=== PATIENT | male | born 1950 | race Caucasian/White ===

== ENCOUNTER 2022-05-21 06:48 | Day surgery (SDC) | payer OTHER, SELFPAY ==
[2022-05-17 12:08] VITALS: BMI 25.7
[2022-05-21] MEDS: sodium chloride 0.9% 1,000 ML 30 ML IV (07:19)
--- NOTE | 2022-05-21 07:42 | P.HP_ITS ---
Same Day Surgery H&P Indication for Procedure/HPI DATE OF PROCEDURE: May 21, 2022 CHIEF COMPLAINT/INDICATIONFOR SURGICAL PROCEDURE: Screen PREOP DIAGNOSIS: Screen PLANNED PROCEDURE: Operation Date: 05/21/22 08:30 Proposed Procedures p [id number] Colon A Risk Z12.11(Not Applicable) - Chino Thomas MD Medications/Allergies* Home Medications Medication Instructions Recorded Confirmed Type duloxetine 30 mg capsule,delayed 30 mg PO DAILY 05/02/22 05/17/22 History release hydrochlorothiazide 25 mg tablet 25 mg PO DAILY 05/02/22 05/17/22 History meloxicam 15 mg tablet 15 mg PO DAILY 05/02/22 05/17/22 History amoxicillin 875 mg-potassium 1 tab PO Q12H 05/17/22 05/17/22 History clavulanate 125 mg tablet Allergies/Adverse Reactions Allergy/AdvReac Type Severity Reaction Status Date / Time hylan G-F 20 [From [employer]og[employer]] Allergy swelled up Verified 05/02/22 13:34 and got fluid on his knee Current Medications: Generic Name Dose Route Start Last Admin Trade Name Freq PRN Reason Stop Dose Admin Sodium Chloride 1,000 mls @ 30 mls/hr 05/21/22 07:00 05/21/22 07:19 Sodium Chloride 0.9% IV 30 mls/hr .Q24H RAYMUNDO Administration Pertinent History/Comorbid Conditions* Family History (Updated 05/02/22 @ 13:40 by Celia Kwon LPN) Father Osteoporosis Mother Heart disease Father Cancer Father Hypertension Mother Social History Smoking and tobacco status: former smoker Quit status (tobacco): has quit using tobacco Second hand smoke exposure: No Smoking risk assessment/counseling performed?: No Alcohol intake: never Desire information about alcohol rehabilitation?: No Counseling given: No Desire information about substance/drug rehabilitation?: No Counseling given: No Adopted: No Caregiver/support person: No Lives independently: Yes Household members: spouse Housing: House Marital status: Number of children: 2 Highest education level completed: High School Graduate service: Yes Current occupational status: retired Pertinent Exam Findings alert, oriented x 3, clear to auscultation bilaterally, regular rate & rhythm, operative site marked and procedure specific exam findings Recommendations Surgery/Procedure today Coding Level of Care Code Acute Fabricator Special Items for To Jones
--- NOTE | 2022-05-21 08:30 | P.ANESASSM_ITS ---
Pre-Anesthetic Assessment Height/Weight: Height 1.83 m Weight 86.183 kg Preop Diagnosis: Screen Operation Date: 05/21/22 08:30 Proposed Procedures p [id number] Colon A Risk Z12.11(Not Applicable) - Chino Thomas MD Familial anesthetic complications: none Was Beta Buck taken within 24 hours: N/A Was Clonidine taken within 24 hours: N/A Last intake: Intake Last Liquid Date 05/20/22 Last Liquid Time 22:00 Last Solid Date 05/19/22 Last Solid Time 18:00 Social No alcohol and No tobacco Exam alert, oriented x 3, clear to auscultation bilaterally and regular rate & rhythm Airway Submandibular: within normal limits Cervical ROM: within normal limits Mallampati: Class II Dentition: full Pulmonary None reported CV/HEM Hypertension None reported Hepatic None reported GI None reported Metabolic None reported Musc/skel Lower Back Pain, Osteoarthritis/DJD and Weakness (lower extremities) Neuropsych Depression and Neuropathy Anesthetic Plan ASA status: 3 Anesthesia: MAC Risk of > 500 ml blood loss (7ml/kg in children): No Medications/Allergies Home Medications Medication Instructions Recorded Confirmed Last Taken Type duloxetine 30 mg capsule,delayed 30 mg PO DAILY 05/02/22 05/17/22 05/20/22 History release hydrochlorothiazide 25 mg tablet 25 mg PO DAILY 05/02/22 05/17/22 05/20/22 History meloxicam 15 mg tablet 15 mg PO DAILY 05/02/22 05/17/22 05/20/22 History amoxicillin 875 mg-potassium 1 tab PO Q12H 05/17/22 05/17/22 05/20/22 History clavulanate 125 mg tablet Allergies Allergy/AdvReac Type Severity Reaction Status Date / Time hylan G-F 20 [From [employer]] Allergy swelled up Verified 05/02/22 13:34 and got fluid on his knee Current Medications Generic Name Dose Route Start Last Admin Trade Name Freq PRN Reason Stop Dose Admin Sodium Chloride 1,000 mls @ 30 mls/hr 05/21/22 07:00 05/21/22 07:19 Sodium Chloride 0.9% IV 30 mls/hr .Q24H RAYMUNDO Administration PFSH Anesthesia Family History (Updated 05/02/22 @ 13:40 by Celia Kwon LPN) Father Cancer Heart disease Mother Hypertension Osteoporosis Social History (Updated 05/02/22 @ 13:41 by Celia Kwon LPN) Smoking and tobacco status: former smoker Quit status (tobacco): has quit using tobacco Second hand smoke exposure: No Smoking risk assessment/counseling performed?: No Alcohol intake: never Desire information about alcohol rehabilitation?: No Counseling given: No Desire information about substance/drug rehabilitation?: No Counseling given: No Adopted: No Caregiver/support person: No Lives independently: Yes Household members: spouse Housing: House Marital status: Number of children: 2 Highest education level completed: High School Graduate service: Yes Current occupational status: retired Data Anesthesia Cardiac Studies: No Data to Display
[2022-05-21 09:13] VITALS: BP 107/73; PULSE 73; RESP 18; TEMP 36.3; O2SAT 96
[2022-05-21 09:30] VITALS: BP 113/79; PULSE 54; RESP 18; O2SAT 97
--- NOTE | 2022-05-21 14:47 | ANE.PACU2 ---
Inpatient post-anesthesia follow up: Airway intact: Yes Vital signs: Temperature 97.4 F Pulse Rate 54 Respiratory Rate 18 Blood Pressure 113/79 Pulse Oximetry 97 Oxygen Delivery Me thod Room Air Oxygen Flow Rate Fraction of Inspir ed Oxygen Hydration adequate: Yes Nausea and vomiting: No Pain level: 1 Mental status: Baseline
== END 2022-05-21 09:48 | disposition home or self-care (01) ==
PROVIDERS: PCP Family Medicine Adult Medicine; Visit Provider Internal Medicine
PROC: 0DJD8ZZ Inspection of Lower Intestinal Tract, Via Natural or Artificial Opening Endoscopic (ICD-10-PCS; CPT 45378; principal; 2022-05-21 08:30)
DX: Z12.11 Encounter for screening for malignant neoplasm of colon (principal); Z87.891 Personal history of nicotine dependence; I10 Essential (primary) hypertension
CPT/HCPCS: 45378; J2704; J7030

== ENCOUNTER 2022-10-03 14:14 | Outpatient (CLI) | payer OTHER, SELFPAY ==
--- NOTE | 2022-10-03 14:45 | USCV_ITS ---
Keron Sanchez Age: 72 Gender: M : 1950 Exam Date: 10/03/2022 15:28 Ordering Phys: Fernanda Cullen MD Technologist: CT Exam Location: [facility] [place]_ Indication: cyanosis Risk Factors: Previous Vascular Surgery: RIGHT LEFT BP: 121.0 / 68.00 BP: 122.0/ 75.00 0 0 Waveform Velocity (cm/s) Velocity (cm/s) Waveform Triphasic 77.7 Iliac Prox 76.1 Triphasic Triphasic 70.3 Iliac Mid 65.5 Triphasic Triphasic Iliac Distal Triphasic 68.3 61.7 Triphasic 86.3 PLUM PACKER 60.9 Triphasic Triphasic 61.1 SFA Prox 75.2 Triphasic Triphasic 55.7 SFA Mid 57.8 Biphasic Triphasic 57.7 SFA Dist 45.9 Biphasic Biphasic 35.2 POP 44.0 Biphasic Biphasic 47.0 RACK CARRIER 60.8 Biphasic Triphasic 44.7 DPA 56.8 Biphasic 1.0 SCOTT 1.0 FINDINGS Resting SCOTT of 1.0 bilaterally Normal/near normal Doppler waveforms bilaterally CONCLUSIONS Normal resting ABIs bilaterally with normal or near normal arterial Doppler waveforms, suggesting no significant arterial obstruction. No unstable plaques or lesions noted. No similar previous studies are available for comparison Dr Mauricio Nam MD [facility] (Electronically Signed) Final Date: 06 October 2022 17:34 S
== END 2022-10-03 14:15 | disposition home or self-care (01) ==
PROVIDERS: PCP Emergency Medicine Emergency Medical Services; Visit Provider Family Medicine
DX: Z01.89 Encounter for other specified special examinations (principal); R23.0 Cyanosis
CPT/HCPCS: 93925

== ENCOUNTER 2023-05-20 08:05 | Outpatient (CLI) | payer OTHER, SELFPAY ==
--- NOTE | 2023-05-20 08:08 | USCV_ITS ---
Keron Sanchez Age: 72 Gender: M : 1950 Exam Date: 05/20/2023 08:21 Ordering Phys: Hollis Hart DO Technologist: CT [place] [facility] [place]ication: screening HISTORY: Diameter (cm) AP x Transverse x Length Velocity (cm/s) Waveform Prox Aorta: 2.64 x 2.80 x 55.40 Mid Aorta: 2.29 x 2.23 x 65.30 Distal Aorta: 2.05 x 1.96 x 66.10 Right Iliac Prox: 1.30 x 1.12 x 92.50 Left Iliac Prox: 1.24 x 1.30 x 97.50 Stent Prox Landing x x Aneurysmal Sac Max x x Lt Lat Sac Dim Rt Lat Sac Dim Stent Dist Landing x x Right Iliac Stent x x Left Iliac Stent x x Right Renal Art Left Renal Art FINDINGS: Comparison: none available. No evidence of abdominal aortic aneurysm. Ectatic abdominal aorta with minimal atherosclerotic plaque noted. There is no evidence of a right common iliac artery aneurysm. There is no evidence of a left common iliac artery aneurysm. CONCLUSIONS No evidence of abdominal aortic or bilateral iliac aneurysm. Dr. Ofelia Nova DO (Electronically Signed) Final Date: 20 May 2023 12:14 S
== END 2023-05-20 08:06 | disposition home or self-care (01) ==
LOC: RAD 08:05
PROVIDERS: PCP Emergency Medicine Emergency Medical Services; Visit Provider Emergency Medicine Emergency Medical Services
DX: Z13.6 Encounter for screening for cardiovascular disorders (principal)
CPT/HCPCS: 76706

== ENCOUNTER → 2024-04-30 07:53 | Outpatient (BNVA) | payer OTHER, SELFPAY | PROVIDERS: PCP Emergency Medicine Emergency Medical Services; Visit Provider Specialist | DX: G61.81 Chronic inflammatory demyelinating polyneuritis (principal) | CPT/HCPCS: 99204; 99205 ==

== ENCOUNTER 2024-05-12 11:00 | Oncology outpatient (recurring) (ONCR) | payer OTHER, SELFPAY ==
[2024-05-11] VITALS (9 sets, daily range): BP systolic 125–148; BP diastolic 72–82; PULSE 47–70; RESP 16–17; TEMP 36.3–36.7; O2SAT 96–99
[2024-05-11] MEDS: diphenhydrAMINE 50 mg/mL SDV 1mL 25 MG IVP (12:10)
[2024-05-11] MEDS: acetaminophen 325 mg Tablet 650 MG PO (12:10)
[2024-05-11] MEDS: immune globulin (Privigen ONC) 40 GM in empty flexible container 1 EACH IV (12:37)
[2024-05-12] VITALS (9 sets, daily range): BP systolic 121–144; BP diastolic 72–86; PULSE 46–66; RESP 16–17; TEMP 36.4–36.8; O2SAT 94–99
[2024-05-12] MEDS: diphenhydrAMINE 50 mg/mL SDV 1mL 25 MG IVP (11:03)
[2024-05-12] MEDS: acetaminophen 325 mg Tablet 650 MG PO (11:03)
[2024-05-12] MEDS: immune globulin (Privigen ONC) 40 GM in empty flexible container 1 EACH IV (11:35)
== END 2024-05-12 23:59 | disposition home or self-care (01) ==
PROVIDERS: PCP Emergency Medicine Emergency Medical Services; Visit Provider Specialist
DX: Z53.9 Procedure and treatment not carried out, unspecified reason (principal); G61.81 Chronic inflammatory demyelinating polyneuritis; Z79.899 Other long term (current) drug therapy
CPT/HCPCS: 96365; 96366; 96375; J1200; J1459

== ENCOUNTER 2024-05-14 11:00 | Oncology outpatient (recurring) (ONCR) | payer OTHER, SELFPAY ==
[2024-05-13] VITALS (10 sets, daily range): BP systolic 118–132; BP diastolic 62–75; PULSE 54–76; RESP 16; TEMP 36.2–37; O2SAT 94–98
[2024-05-13] MEDS: acetaminophen 325 mg Tablet 650 MG PO (12:20)
[2024-05-13] MEDS: diphenhydrAMINE 50 mg/mL SDV 1mL 25 MG IVP (12:21)
[2024-05-13] MEDS: sodium chloride 0.9% 250 ML 75 ML IV (13:10)
[2024-05-13] MEDS: immune globulin (Privigen ONC) 40 GM in empty flexible container 1 EACH IV (13:35)
[2024-05-14] VITALS (9 sets, daily range): BP systolic 110–127; BP diastolic 57–71; PULSE 53–62; RESP 15–17; TEMP 36.1–37; O2SAT 93–97
[2024-05-14] MEDS: acetaminophen 325 mg Tablet 650 MG PO (11:34)
[2024-05-14] MEDS: immune globulin (Privigen ONC) 40 GM in empty flexible container 1 EACH IV (11:59)
== END 2024-05-14 23:59 | disposition home or self-care (01) ==
PROVIDERS: PCP Emergency Medicine Emergency Medical Services; Visit Provider Specialist
DX: Z79.899 Other long term (current) drug therapy (principal); G61.81 Chronic inflammatory demyelinating polyneuritis; Z53.9 Procedure and treatment not carried out, unspecified reason
CPT/HCPCS: 96365; 96366; 96375; J1200; J1459; J7050

== ENCOUNTER 2024-05-15 08:58 | Oncology outpatient (recurring) (ONCR) | payer OTHER, SELFPAY ==
[2024-05-15] VITALS (9 sets, daily range): BP systolic 116–131; BP diastolic 57–76; PULSE 44–54; RESP 16; TEMP 35.9–36.4; O2SAT 93–97
[2024-05-15] MEDS: acetaminophen 325 mg Tablet 650 MG PO (09:13)
[2024-05-15] MEDS: immune globulin (Privigen ONC) 40 GM in empty flexible container 1 EACH IV (09:39)
== END 2024-05-28 23:59 | disposition home or self-care (01) ==
PROVIDERS: PCP Emergency Medicine Emergency Medical Services; Visit Provider Specialist
DX: G61.81 Chronic inflammatory demyelinating polyneuritis (principal); Z79.899 Other long term (current) drug therapy
CPT/HCPCS: 96365; 96366; J1459

== ENCOUNTER 2024-06-05 07:50 | Oncology outpatient (recurring) (ONCR) | payer OTHER, SELFPAY ==
[2024-06-05] VITALS (9 sets, daily range): BP systolic 112–138; BP diastolic 57–83; PULSE 46–63; RESP 16–17; TEMP 36.2–36.8; O2SAT 93–98
[2024-06-05] MEDS: acetaminophen 325 mg Tablet 650 MG PO (08:07)
[2024-06-05] MEDS: IMMUNE GLOBULIN IV (08:15)
[2024-06-05] MEDS: [UNRECOGNIZED DRUG - OTHER] IV (08:15)
--- NOTE | 2024-06-05 09:57 | PC.NURSE ---
patient refused benadryl premedication
== END 2024-06-05 23:29 | disposition home or self-care (01) ==
PROVIDERS: PCP Emergency Medicine Emergency Medical Services; Visit Provider Specialist
DX: G61.81 Chronic inflammatory demyelinating polyneuritis (principal); Z79.899 Other long term (current) drug therapy
CPT/HCPCS: 96365; 96366; J1459

== ENCOUNTER 2024-06-29 12:00 | Oncology outpatient (recurring) (ONCR) | payer OTHER, SELFPAY ==
[2024-06-29] MEDS: [UNRECOGNIZED DRUG - OTHER] IV (12:40)
[2024-06-29] MEDS: IMMUNE GLOBULIN IV (12:40)
[2024-06-29] MEDS: acetaminophen 325 mg Tablet 650 MG PO (13:15)
[2024-06-29 13:44] VITALS: BP 128/66; PULSE 76; RESP 18; TEMP 36.4; O2SAT 98
[2024-06-29 17:27] VITALS: BP 158/92; PULSE 49; RESP 16; TEMP 36.6; O2SAT 98
== END 2024-06-29 23:59 | disposition home or self-care (01) ==
PROVIDERS: PCP Emergency Medicine Emergency Medical Services; Visit Provider Specialist
DX: G61.81 Chronic inflammatory demyelinating polyneuritis (principal); Z79.899 Other long term (current) drug therapy
CPT/HCPCS: 96365; 96366; 96413; J1459

== ENCOUNTER → 2024-07-14 14:38 | Outpatient (BNVA) | payer OTHER, SELFPAY | PROVIDERS: PCP Emergency Medicine Emergency Medical Services; Referring Provider Specialist; Visit Provider Specialist | DX: G61.81 Chronic inflammatory demyelinating polyneuritis (principal) | CPT/HCPCS: 95913 ==

== ENCOUNTER 2024-07-20 10:40 | Oncology outpatient (recurring) (ONCR) | payer OTHER, SELFPAY ==
[2024-07-20 11:09] VITALS: BP 139/79; PULSE 62; RESP 16; TEMP 36.7; O2SAT 98
[2024-07-20] MEDS: acetaminophen 325 mg Tablet 650 MG PO (11:31)
[2024-07-20] MEDS: [UNRECOGNIZED DRUG - OTHER] IV (11:55)
[2024-07-20] MEDS: IMMUNE GLOBULIN IV (11:55)
[2024-07-20 12:10] VITALS: BP 148/74; PULSE 56; RESP 18; TEMP 36.4; O2SAT 98
[2024-07-20 12:15] VITALS: BP 131/77; PULSE 64; RESP 18; TEMP 36.4; O2SAT 98
[2024-07-20 12:30] VITALS: BP 134/67; BP 134/76; PULSE 58; RESP 17; RESP 18; TEMP 36.4; O2SAT 95; O2SAT 96
[2024-07-20 15:30] VITALS: BP 132/68; PULSE 54; RESP 18; TEMP 36.6; O2SAT 98
== END 2024-07-20 10:41 | disposition home or self-care (01) ==
PROVIDERS: PCP Emergency Medicine Emergency Medical Services; Visit Provider Specialist
DX: G61.81 Chronic inflammatory demyelinating polyneuritis (principal); Z79.899 Other long term (current) drug therapy
CPT/HCPCS: 96365; 96366; J1459

== ENCOUNTER → 2024-07-30 08:00 | Outpatient (BNVA) | payer OTHER, SELFPAY | PROVIDERS: PCP Emergency Medicine Emergency Medical Services; Visit Provider Specialist | DX: G61.81 Chronic inflammatory demyelinating polyneuritis (principal); R07.9 Chest pain, unspecified; G56.02 Carpal tunnel syndrome, left upper limb | CPT/HCPCS: 99214 ==

== ENCOUNTER 2024-08-10 10:34 | Oncology outpatient (recurring) (ONCR) | payer OTHER, SELFPAY ==
[2024-08-10] MEDS: sodium chloride 0.9% 250 ML 75 ML IV (12:42)
[2024-08-10] MEDS: acetaminophen 325 mg Tablet 650 MG PO (12:46)
[2024-08-10] MEDS: methylPREDNISolone sod succ 125 mg/2 mL INJ IVP (12:47)
[2024-08-10 13:35] VITALS: BP 131/66; PULSE 62; RESP 16; TEMP 36.1; O2SAT 97
[2024-08-10] MEDS: IMMUNE GLOBULIN IV (13:35)
[2024-08-10] MEDS: [UNRECOGNIZED DRUG - OTHER] IV (13:35)
[2024-08-10 13:50] VITALS: BP 113/67; PULSE 57; RESP 16; TEMP 36.1; O2SAT 94
[2024-08-10 14:20] VITALS: BP 114/64; PULSE 56; RESP 16; TEMP 36.2; O2SAT 94
[2024-08-10 15:30] VITALS: BP 134/75; PULSE 64; RESP 16; TEMP 36.2; O2SAT 94
[2024-08-10 16:55] VITALS: BP 128/79; PULSE 70; RESP 16; TEMP 36.7; O2SAT 96
== END 2024-08-10 23:59 | disposition home or self-care (01) ==
PROVIDERS: PCP Emergency Medicine Emergency Medical Services; Visit Provider Specialist
DX: G61.81 Chronic inflammatory demyelinating polyneuritis (principal); Z79.899 Other long term (current) drug therapy
CPT/HCPCS: 96365; 96366; 96375; J1459; J2919; J7050

== ENCOUNTER 2024-08-31 10:54 | Oncology outpatient (recurring) (ONCR) | payer OTHER, SELFPAY ==
[2024-08-31] MEDS: acetaminophen 325 mg Tablet 650 MG PO (11:48)
[2024-08-31] MEDS: methylPREDNISolone sod succ 125 mg/2 mL INJ IVP (11:48)
[2024-08-31] MEDS: [UNRECOGNIZED DRUG - OTHER] IV (12:40)
[2024-08-31] MEDS: IMMUNE GLOBULIN IV (12:40)
[2024-08-31 16:08] VITALS: BP 116/70; PULSE 58; RESP 16; TEMP 36; O2SAT 95
== END 2024-08-31 23:59 | disposition home or self-care (01) ==
PROVIDERS: PCP Emergency Medicine Emergency Medical Services; Visit Provider Specialist
DX: G61.81 Chronic inflammatory demyelinating polyneuritis (principal); Z79.899 Other long term (current) drug therapy
CPT/HCPCS: 96365; 96366; J1459; J2919

== ENCOUNTER 2024-09-22 10:42 | Oncology outpatient (recurring) (ONCR) | payer OTHER, SELFPAY ==
[2024-09-22 12:00] VITALS: BP 124/78; PULSE 78; RESP 18; TEMP 36.1; O2SAT 98
[2024-09-22] MEDS: acetaminophen 325 mg Tablet 650 MG PO (12:13)
[2024-09-22] MEDS: methylPREDNISolone sod succ 125 mg/2 mL INJ IVP (12:13)
[2024-09-22] MEDS: [UNRECOGNIZED DRUG - OTHER] IV (12:40)
[2024-09-22] MEDS: IMMUNE GLOBULIN IV (12:40)
[2024-09-22 15:55] VITALS: BP 154/78; PULSE 78; RESP 18; TEMP 36.6; O2SAT 98
== END 2024-09-22 23:59 | disposition home or self-care (01) ==
PROVIDERS: PCP Emergency Medicine Emergency Medical Services; Visit Provider Specialist
DX: G61.81 Chronic inflammatory demyelinating polyneuritis (principal); Z79.899 Other long term (current) drug therapy
CPT/HCPCS: 96375; 96413; 96415; J1459; J2919

== ENCOUNTER 2024-10-13 10:19 | Oncology outpatient (recurring) (ONCR) | payer OTHER, SELFPAY ==
[2024-10-13 10:46] VITALS: BP 122/66; PULSE 68; RESP 16; TEMP 36.7; O2SAT 95
[2024-10-13] MEDS: methylPREDNISolone sod succ 125 mg/2 mL INJ IV (11:13)
[2024-10-13] MEDS: acetaminophen 325 mg Tablet 650 MG PO (11:13)
[2024-10-13] MEDS: [UNRECOGNIZED DRUG - OTHER] IV (12:07)
[2024-10-13] MEDS: IMMUNE GLOBULIN IV (12:07)
[2024-10-13 12:10] VITALS: BP 109/69; PULSE 65; RESP 16; TEMP 36.8; O2SAT 92
[2024-10-13 12:14] VITALS: BP 109/69; PULSE 65; RESP 18; TEMP 36.8; O2SAT 92
[2024-10-13 12:25] VITALS: BP 114/67; PULSE 67; RESP 16; TEMP 36.8; O2SAT 94
[2024-10-13 16:10] VITALS: BP 125/72; PULSE 57; RESP 16; TEMP 36.9; O2SAT 92
[2024-10-13 16:34] VITALS: BP 125/72; PULSE 57; RESP 16; TEMP 36.9; O2SAT 92
== END 2024-10-13 23:59 | disposition home or self-care (01) ==
PROVIDERS: PCP Emergency Medicine Emergency Medical Services; Visit Provider Specialist
DX: G61.81 Chronic inflammatory demyelinating polyneuritis (principal); Z79.899 Other long term (current) drug therapy
CPT/HCPCS: 96365; 96366; 96375; J1459; J2919; J9999

== ENCOUNTER 2024-11-03 10:19 | Oncology outpatient (recurring) (ONCR) | payer OTHER, SELFPAY ==
[2024-11-03] MEDS: acetaminophen 325 mg Tablet 650 MG PO (11:15)
[2024-11-03] MEDS: sodium chloride 0.9% 250 ML 75 ML IV (11:16)
[2024-11-03] MEDS: methylPREDNISolone sod succ 125 mg/2 mL INJ IV (11:18)
[2024-11-03] MEDS: IMMUNE GLOBULIN IV (11:43)
[2024-11-03] MEDS: [UNRECOGNIZED DRUG - OTHER] IV (11:43)
[2024-11-03 11:50] VITALS: BP 117/66; PULSE 81; RESP 18; TEMP 36.4; O2SAT 95
[2024-11-03 15:50] VITALS: BP 121/60; PULSE 78; RESP 18; TEMP 36.6; O2SAT 92
== END 2024-11-03 23:59 | disposition home or self-care (01) ==
PROVIDERS: PCP Emergency Medicine Emergency Medical Services; Visit Provider Specialist
DX: G61.81 Chronic inflammatory demyelinating polyneuritis (principal); Z79.899 Other long term (current) drug therapy
CPT/HCPCS: 96413; 96415; J1459; J2919; J7050; J9999

== ENCOUNTER 2024-11-24 10:07 | Oncology outpatient (recurring) (ONCR) | payer OTHER, SELFPAY ==
[2024-11-24] MEDS: methylPREDNISolone sod succ 125 mg/2 mL INJ IV (11:21)
[2024-11-24] MEDS: sodium chloride 0.9% 250 ML 75 ML IV (11:21)
[2024-11-24] MEDS: acetaminophen 325 mg Tablet 650 MG PO (11:21)
[2024-11-24] MEDS: [UNRECOGNIZED DRUG - OTHER] IV (11:45)
[2024-11-24] MEDS: IMMUNE GLOBULIN IV (11:45)
[2024-11-24 12:19] VITALS: BP 122/69; PULSE 51; RESP 16; TEMP 36.5; O2SAT 95
[2024-11-24 12:34] VITALS: BP 122/69; PULSE 54; RESP 16; TEMP 36.5; O2SAT 94
[2024-11-24 13:22] VITALS: BP 115/49; PULSE 58; RESP 16; TEMP 36.4; O2SAT 94
[2024-11-24 16:31] VITALS: BP 129/75; PULSE 66; RESP 18; TEMP 36.7; O2SAT 95
== END 2024-11-24 23:59 | disposition home or self-care (01) ==
LOC: ONCMED 10:07
PROVIDERS: PCP Emergency Medicine Emergency Medical Services; Visit Provider Specialist
DX: G61.81 Chronic inflammatory demyelinating polyneuritis (principal); Z79.899 Other long term (current) drug therapy
CPT/HCPCS: 96365; 96366; 96375; J1459; J2919; J7050; J9999

== ENCOUNTER → 2024-11-26 07:58 | Outpatient (BNVA) | payer OTHER, SELFPAY | PROVIDERS: PCP Emergency Medicine Emergency Medical Services; Visit Provider Specialist | DX: G61.81 Chronic inflammatory demyelinating polyneuritis (principal); R07.9 Chest pain, unspecified; G56.02 Carpal tunnel syndrome, left upper limb | CPT/HCPCS: 99214 ==

== ENCOUNTER 2024-12-15 10:00 | Oncology outpatient (recurring) (ONCR) | payer OTHER, SELFPAY ==
[2024-12-08 08:27] VITALS: BMI 16.1
--- NOTE | 2024-12-08 08:27 | ECG_ITS ---
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 The perfusion scan will be documented separately. DATA: Baseline heart rate was 53 beats per minute. Baseline blood pressure was 125/75 millimeters of mercury. Target heart rate was 146. Maximum heart rate achieved was 101. which was 69% of the predicted target heart rate. Maximum blood pressure was 135/75 millimeters of mercury. The reason for ending the test was completion of the protocol. The patient did not experience any symptoms. ELECTROCARDIOGRAM: BASELINE: Sinus bradycardia. Normal axis. Otherwise, no ST-T changes suggestive of ischemia noted. No arrhythmia noted. EXERCISE: After Lexiscan injection, no ST-T changes suggestive of ischemic noted. No arrhythmia noted. CONCLUSION: Please note due to baseline abnormality of the EKG specificity and sensitivity of the EKG portion of LexiScan MIBI stress test will be low 1. EKG not suggestive of ischemia 2. Lexiscan injection unremarkable. 3. Perfusion scan will be documented separately. Electronically Signed On 12-29-2024 22:05:54 CDT by ROLANDO RICH [email or web address]
--- NOTE | 2024-12-08 08:28 | NMCV_ITS ---
NM julia perf SPECT r/s* [id number] Keron Sanchez Age: 74 Gender: M : 1950 Exam Date: 12/08/2024 09:46 Ordering Phys: Irish Akbar MD Technologist: ZAK Darling Exam Location: [facility] Indications: cp STRESS TEST Please see separate stress test report in [facility] for full findings IMAGE PROTOCOL Rest/Stress 1 Lexiscan Day Radiopharmaceutical Dose (mCi) Administration Site Administered by Rest: Tc-99m 11 IV ZAK Darling Sestamibi Stress:Tc-99m 32.8 IV ZAK Fernandez Sestamibi Rest: 08-Dec-2024 60 Discovery 630 Stress: 08-Dec-2024 30 Discovery 630 0.4mg Lexiscan. Images obtained in supine and prone position. SPECT RESULTS Technical Quality: Good Raw Data Analysis: Normal Image Corrections: No attenuation or motion correction applied Summed Stress Score: 8 Summed Rest Score: 4 Summed Difference Score: 4 PERFUSION FINDINGS Large area of fixed perfusion defect noted in basal to distal inferior and 4 septal wall suggestive of old myocardial infarction with mild medium sized area of reversibility suggestive of john-infarct ischemia. 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 Most likely lesion is in RCA territory. Maxx Bowen MD (Electronically Signed) Final Date: 10 Dec 2024 21:29 S
[2024-12-08] MEDS: regadenoson 0.4 Mg/5 ml Syringe IVP (10:27)
[2024-12-08 10:45] VITALS: BP 111/56; PULSE 54
== END 2024-12-26 23:59 | disposition home or self-care (01) ==
PROVIDERS: PCP Family Medicine; Visit Provider Specialist
DX: Z53.9 Procedure and treatment not carried out, unspecified reason (principal)
CPT/HCPCS: 36415; 78452; 93017; 96374; A9500; J2785

== ENCOUNTER → 2025-06-01 07:58 | Outpatient (BNVA) | payer OTHER, SELFPAY | PROVIDERS: PCP Family Medicine; Visit Provider Specialist | DX: G61.81 Chronic inflammatory demyelinating polyneuritis (principal); R07.9 Chest pain, unspecified; G56.02 Carpal tunnel syndrome, left upper limb; M50.30 Other cervical disc degeneration, unspecified cervical region | CPT/HCPCS: 99215 ==

== ENCOUNTER 2025-06-11 10:52 | Outpatient (CLI) | payer OTHER, SELFPAY ==
--- NOTE | 2025-06-11 11:00 | MR_ITS ---
WS: [id number] MRI CERVICAL SPINE NONCONTRAST TECHNIQUE: Sagittal T1, T2 and STIR imaging. Axial T2, gradient, and fiesta imaging. CLINICAL INFORMATION: M54.2 - Cervicalgia COMPARISON: None. FINDINGS: Advanced spondylitic changes cervical spine. Straightening of the normal cervical lordosis. Disc space narrowing worse at C3-C4 and C5-C6. Degenerative edema at the RIGHT C1-2 articulation C2-C3: Moderate facet arthropathy. Moderate LEFT bony foraminal narrowing. C3-C4: Slight retrolisthesis. Disc osteophyte complex with mild central canal stenosis. Moderate to advanced facet arthropathy. Severe RIGHT and moderate LEFT bony foraminal narrowing. Moderate to advanced facet arthropathy. C4-C5: Disc osteophyte complex with endplate ridging. Moderate bilateral bony foraminal narrowing. Mild LEFT greater than RIGHT bony foraminal narrowing. C5-C6: Disc osteophyte complex with a central protrusion. Moderate central canal stenosis. Slight impingement on the cervical cord. Uncovertebral joint hypertrophy. Severe LEFT greater than RIGHT bony foraminal narrowing. Advanced facet arthropathy. C6-C7: Central disc osteophyte protrusion. Mild central canal stenosis. Moderate facet arthropathy. Severe LEFT and mild RIGHT bony foraminal narrowing. C7-T1: Grade 1 anterolisthesis. Mild bilateral bony foraminal narrowing. Visualized brain stem structures: Normal. Prevertebral soft tissues: Normal. MR/MR cervical spin wo con* [id number] IMPRESSION: 1. Advanced spondylitic changes. 2. Disc osteophyte protrusion with moderate central canal stenosis C5-C6 with slight indentation of the cervical cord. 3. Mild central canal stenosis C3-C4 and C6-7. 4. Moderate to severe RIGHT greater than LEFT C3-C4, LEFT greater than RIGHT C 5-C6, and LEFT C6-7 foraminal narrowing. 5. Degenerative edema at the RIGHT C1-2 articulation lateral mass. Mild LEFT C 2-3 facet synovitis likely degenerative
== END 2025-06-11 10:53 | disposition home or self-care (01) ==
LOC: RAD 10:54
PROVIDERS: PCP Family Medicine; Visit Provider Specialist
DX: M47.812 Spondylosis without myelopathy or radiculopathy, cervical region (principal); M48.02 Spinal stenosis, cervical region; M25.78 Osteophyte, vertebrae
CPT/HCPCS: 72141

== ENCOUNTER → 2025-06-14 14:25 | Outpatient (BNVA) | payer OTHER, SELFPAY | PROVIDERS: PCP Family Medicine; Visit Provider Specialist | DX: G56.02 Carpal tunnel syndrome, left upper limb (principal); G56.22 Lesion of ulnar nerve, left upper limb | CPT/HCPCS: 73110; 99205 ==